=== PATIENT | male | born 1980 | race Caucasian/White ===

== ENCOUNTER 2019-05-31 02:18 | Emergency (ER) | payer OTHER ==
[~2019-05-31] VITALS: Ht 175.3 cm; Wt 174.0 kg
[~2019-05-31 02:18] MED LIST: AMOX1TAB10 PO; NAPR-985 PO
[2019-05-31 02:35] VITALS: Ht 175.3 cm; Wt 174.0 kg
[2019-05-31] MEDS ORDERED: morphine 10 MG INJ IV ONE (03:00)
[2019-05-31] MEDS ORDERED: IODIXANOL LOCM 100 ML BTL ONE (03:54)
[2019-05-31] MEDS ORDERED: SOD CHLORIDE 0.9% 100 ML ONE (03:54)
[2019-05-31 06:17] VITALS: BP 100/79; PULSE 84; RESP 16
== END 2019-05-31 06:20 | disposition home or self-care (01) ==
LOC: E/R 02:18
DX: K57.32 Diverticulitis of large intestine without perforation or abscess without bleeding (principal); R94.5 Abnormal results of liver function studies
CPT/HCPCS: 36415; 74177; 76705; 80053; 83690; 85025; 96374; J2270; Q9967; Z7502; Z7610